=== PATIENT | male | born 1960 | race African-American/Black ===

== ENCOUNTER 2019-01-02 04:57 | Observation (INO) | payer BC ==
[~2019-01-02] VITALS: Ht 162.6 cm; Wt 72.6 kg
[2019-01-02] VITALS (11 sets, daily range): BP systolic 128–175; BP diastolic 81–115
--- NOTE | 2019-01-02 05:10 | NUR ---
ED Nurse Note: PT AMBULATED TO ED C/O DIZZINESS AND BLURRED VISION X 1700 YESTERDAY
--- NOTE | 2019-01-02 05:15 | NUR ---
ED Nurse Note: IV ACCESS ESTABLISHED. BLOOD AND URINE COLLECTED; SENT DOWN TO LAB.
--- NOTE | 2019-01-02 06:01 | Emergency Room Report ---
History of Present Illness General Chief Complaint: Dizziness Source: Patient Present Illness HPI Patient presents with 2 episodes of near syncope. He got up quickly while watching [employer] game yesterday and almost passed out. Also when he got up this morning the same thing happened. He denies any chest pain or palpitations. His vision got blurry. He takes some medicine for his blood pressure as prescribed for him he does not know what it is or dosing. No unilateral weakness or numbness. History of peptic ulcer disease when young. No evidence of vomiting, coffee grounds or melena. Risk factors for cardiac disease: Hypertension, hyperlipidemia No fevers, chills, chest pain, palpitations, nausea, vomiting, diarrhea, dysuria , abdominal pain, shortness of breath, depression, headache. Allergies: Coded Allergies: No Known Allergies (Unverified , 01/02/19) Patient History Past Medical History: see triage record Social History: Denies: smoking Social History Narrative Reviewed Nursing Documentation: PMH: Agreed; PSxH: Agreed Nursing Documentation-PMH Past Medical History: No History, Except For Hx Hypertension: Yes Review of Systems All Other Systems: negative except mentioned in HPI Physical Exam Vital Signs Date Time Temp Pulse Resp B/P (MAP) Pulse Ox O2 Delivery O2 Flow Rate FiO2 01/02/19 05:00 97.7 53 16 172/104 (126) 94 Room Air Sp02 EP Interpretation: reviewed, normal General Appearance: well appearing, no apparent distress, GCS 15 Head: normocephalic, atraumatic Eyes: bilateral eye normal inspection, bilateral eye PERRL, bilateral eye EOMI ENT: moist mucus membranes Neck: supple Respiratory: lungs clear, normal breath sounds Cardiovascular #1: regular rate, rhythm Cardiovascular #2: 2+ radial (R) Gastrointestinal: normal inspection, normal bowel sounds, non tender, no mass, non-distended Musculoskeletal: back normal, gait/station normal, normal range of motion Neurologic: alert, oriented x3, research and insights executive III-XII nml as tested, motor strength/tone normal, DTRs symmetric, sensory intact, cerebellar normal, normal gait, speech normal Psychiatric: mood/affect normal Skin: no rash, other - Some pallor Medical Decision Making Diagnostic Impression: Primary Impression: Near syncope Additional Impression: Hypertension Qualified Codes: I10 - Essential (primary) hypertension ER Course The patient presents with near syncope that occurred twice in the last 24 hours. Differential includes acute myocardial infarction, volume depletion, excess medication, arrhythmia amongst others. Consider orthostatic cause. Evaluation with EKG, chest x-ray and labs. Patient is treated with mild IV hydration. Not orthostatic. EKG without injury, rate 54. CXR unremarkable. Labs normal. Due to near syncope, patient admitted telemetry. Repeat troponin determinations , consider cardiology consultation and echocardiogram. Laboratory Tests Test 01/02/19 05:15 White Blood Count 4.8 K/UL (4.8-10.8) Red Blood Count 5.04 M/UL (4.70-6.10) Hemoglobin 15.0 G/DL (14.2-18.0) Hematocrit 45.4 % (42.0-52.0) Mean Corpuscular Volume 90 FL (80-99) Mean Corpuscular Hemoglobin 29.7 PG (27.0-31.0) Mean Corpuscular Hemoglobin Concent 33.0 G/DL (32.0-36.0) Red Cell Distribution Width 13.3 % (11.6-14.8) Platelet Count 172 K/UL (150-450) Mean Platelet Volume 7.8 FL (6.5-10.1) Neutrophils (%) (Auto) % (45.0-75.0) Lymphocytes (%) (Auto) % (20.0-45.0) Monocytes (%) (Auto) % (1.0-10.0) Eosinophils (%) (Auto) % (0.0-3.0) Basophils (%) (Auto) % (0.0-2.0) Prothrombin Time 9.9 SEC (9.30-11.50) Prothrombin Time INR 0.9 (0.9-1.1) PTT 23 SEC (23-33) Urine Color Pale yellow Urine Appearance Clear Urine pH 5 (4.5-8.0) Urine Specific [place] 1.025 (1.005-1.035) Urine Protein Negative (NEGATIVE) Urine Glucose (UA) Negative (NEGATIVE) Urine Ketones Negative (NEGATIVE) Urine Blood 2+ (NEGATIVE) H Urine Nitrite Negative (NEGATIVE) Urine Bilirubin Negative (NEGATIVE) Urine Urobilinogen Normal MG/DL (0.0-1.0) Urine Leukocyte Esterase Negative (NEGATIVE) Urine RBC 2-4 /HPF (0 - 0) H Urine WBC 0 /HPF (0 - 0) Urine Squamous Epithelial Cells None /LPF (NONE/OCC) Urine Bacteria None /HPF (NONE) Sodium Level 139 MMOL/L (136-145) Potassium Level 3.4 MMOL/L (3.5-5.1) L Chloride Level 104 MMOL/L (98-107) Carbon Dioxide Level 26 MMOL/L (21-32) Anion Gap 9 mmol/L (5-15) Blood Urea Nitrogen 19 mg/dL (7-18) H Creatinine 1.0 MG/DL (0.55-1.30) Estimate Glomerular Filtration Rate > 60 mL/min (>60) Glucose Level 158 MG/DL (74-106) H Calcium Level 8.7 MG/DL (8.5-10.1) Total Bilirubin 0.3 MG/DL (0.2-1.0) Aspartate Amino Transferase (AST) 22 U/L (15-37) Alanine Aminotransferase (ALT) 28 U/L (12-78) Alkaline Phosphatase 84 U/L (46-116) Total Creatine Kinase 171 U/L (26-308) Troponin I 0.005 ng/mL (0.000-0.056) Pro-B-Type Natriuretic Peptide 37 pg/mL (0-125) Total Protein 7.1 G/DL (6.4-8.2) Albumin 3.7 G/DL (3.4-5.0) Globulin 3.4 g/dL Albumin/Globulin Ratio 1.1 (1.0-2.7) Urine Opiates Screen Negative (NEGATIVE) Urine Barbiturates Screen Negative (NEGATIVE) Phencyclidine (PCP) Screen Negative (NEGATIVE) Urine Amphetamines Screen Negative (NEGATIVE) Urine Benzodiazepines Screen Negative (NEGATIVE) Urine Cocaine Screen Negative (NEGATIVE) Urine Marijuana (THC) Screen Negative (NEGATIVE) EKG Diagnostic Results Rate: bradycardiac Rhythm: NSR ST Segments: no acute changes Rhythm Strip Diag. Results EP Interpretation: yes Rhythm: NSR, no PVC's, no ectopy Chest X-Ray Diagnostic Results Chest X-Ray Diagnostic Results : Chest X-Ray Ordered: Yes # of Views/Limited/Complete: 1 View Indication: Other EP Interpretation: Yes Interpretation: no consolidation, no effusion, no pneumothorax Impression: No acute disease Electronically Signed by: Electronically signed by Kimani Romero MD Last Vital Signs Date Time Temp Pulse Resp B/P (MAP) Pulse Ox O2 Delivery O2 Flow Rate FiO2 01/02/19 05:54 97.7 51 16 137/81 94 Room Air Disposition: PLACE IN OBSERVATION Condition: Serious Kimani Romero MD Jan 02, 2019 06:01
[2019-01-02 06:12] LABS: HEMATOCRIT 45.4 % (42.0-52.0); MEAN CORPUSCULAR VOLUME 90 FL (80-99); PLATELET COUNT 172 K/UL (150-450); RED BLOOD COUNT 5.04 M/UL (4.70-6.10); RED CELL DISTRIBUTION WIDTH 13.3 % (11.6-14.8); WHITE BLOOD COUNT 4.8 K/UL (4.8-10.8)
[2019-01-02 06:20] LABS: INR 0.9 (0.9-1.1)
[2019-01-02 06:25] LABS: ANION GAP 9 mmol/L (5-15); BLOOD UREA NITROGEN 19 mg/dL (7-18); CALCIUM 8.7 MG/DL (8.5-10.1); CARBON DIOXIDE 26 MMOL/L (21-32); CHLORIDE 104 MMOL/L (98-107); POTASSIUM 3.4 MMOL/L (3.5-5.1); SODIUM 139 MMOL/L (136-145)
[2019-01-02 06:32] LABS: APPEARANCE,URINE CLEAR; BILIRUBIN, URINE NEGATIVE (NEGATIVE); COLOR,URINE PALE YELLOW; GLUCOSE, URINE (UA) NEGATIVE (NEGATIVE); KETONES,URINE NEGATIVE (NEGATIVE); LEUKOCYTE ESTERASE ,URINE NEGATIVE (NEGATIVE); NITRITE,URINE NEGATIVE (NEGATIVE); PH,URINE 5 (4.5-8.0); PROTEIN,URINE NEGATIVE (NEGATIVE); UROBILINOGEN,URINE NORMAL MG/DL (0.0-1.0)
[2019-01-02 06:38] LABS: ALANINE AMINOTRANSFERASE 28 U/L (12-78); ALBUMIN 3.7 G/DL (3.4-5.0); ALBUMIN/GLOBULIN RATIO 1.1 (1.0-2.7); ALKALINE PHOSPHATASE 84 U/L (46-116); ASPARTATE AMINO TRANSFERASE 22 U/L (15-37); BILIRUBIN,TOTAL 0.3 MG/DL (0.2-1.0); CREATINE KINASE 171 U/L (26-308)
--- NOTE | 2019-01-02 07:04 | NUR ---
HAND-OFF: Report given to tuan paz. patient in stable condition. endorsed pending observation.
--- NOTE | 2019-01-02 07:09 | NUR ---
ED Nurse Note: pt went back from ct with tech
--- NOTE | 2019-01-02 07:18 | NUR ---
ED Nurse Note: pt is aware that he is going to stay in the hospital for observation. pt denies pain. bp 152/92. will continue to monitor.
--- NOTE | 2019-01-02 07:23 | NUR ---
ED Nurse Note: alternative energy technician on bedside.
--- NOTE | 2019-01-02 09:30 | NUR ---
ED Nurse Note: pt aware of the transfer, aware. pt has no complaint at the moment. will continue to monitor.
--- NOTE | 2019-01-02 09:35 | NUR ---
ED Nurse Note: [phone] germain [place] pt left her phone number on file
--- NOTE | 2019-01-02 11:35 | NUR ---
ED Nurse Note: pt was admitted to the hospital. report given to Cynthia AGUILERA
--- NOTE | 2019-01-02 11:40 | NUR ---
ED Nurse Note: pt was tranfered to the room, all belongings endorsed to daphney dickerson.
--- NOTE | 2019-01-02 11:51 | Diagnostic Imaging Report ---
Indication: Syncope Technique: Contiguous 5 mm thick transaxial imaging of the head obtained in a Siemens Sensation [address] scanner. Soft tissue and bone windows generated. Automatic Exposure Control was utilized. Total Dose length Product (DLP): 1411.[address] Dose Index Volume (CTDIvol): 70.38 mGy Comparison: none Findings: The size and configuration of the cortical sulci, basal cisterns, and ventricles are within normal limits for age. There is no mass effect, midline shift, or edema identified. There is no evidence of acute hemorrhage or abnormal intra-axial or extra-axial fluid collections. The bones and soft tissues are unremarkable. Impression: No mass effect, edema or acute bleed. [facility] has communicated the preliminary results to the Emergency Department. Their findings are largely concordant with this report. The CT scanner at [facility] is accredited by the [employer] and the scans are performed using dose optimization techniques as appropriate to a performed exam including Automatic Exposure control.
--- NOTE | 2019-01-02 12:45 | History and Physical Report ---
DATE OF ADMISSION: 01/02/2019 REASON FOR ADMISSION: 1. Lightheadedness. 2. Presyncopal episode. HISTORY OF PRESENT ILLNESS: The patient is a 58-year-old gentleman being admitted for further and evaluation of care of 2 episodes of near syncope. It seems that both occasions had occurred when he went from a sitting or lying position up to standing. First time, occurrence was while watching TV, the patient stood up, and got lightheaded and dizzy, and such he sat down and felt better. Later that night, he woke up at 2 in the morning to retrieve some water, while standing up to go to the kitchen also the patient felt lightheaded and dizzy and then came back to the bedroom. The patient's only medication is lisinopril. Family at bedside states he takes it off and on. He denies any blackout, passing out, just 2 episodes of feeling lightheaded and dizzy. Heart rate at bedside currently 50 to 52. Denies any cardiac history. ALLERGIES: None. PAST MEDICAL HISTORY: Hypertension. SOCIAL HISTORY: No tobacco, alcohol, illicit drug use. FAMILY HISTORY: Hypertension. PAST SURGICAL HISTORY: Noncontributory. REVIEW OF SYSTEMS: NEUROLOGIC: The patient was lightheaded and dizzy. No syncopal episodes. CARDIOVASCULAR: No current chest pain, palpitations, or angina. PULMONARY: No difficulty breathing, productive cough, or sputum. GASTROINTESTINAL/GENITOURINARY: No change in bowel habits. No nausea, vomiting, or diarrhea. ENDOCRINOLOGY: No night sweats, fever, or chills. MUSCULOSKELETAL: The patient feels fatigued. LABORATORY DATA: Labs dated 01/02/2019, white cell count 4.8, hemoglobin 15, platelet count 172. Potassium 3.4, sodium 139, creatinine 1. Troponin 0.005. Toxicology screen negative. PHYSICAL EXAMINATION: VITAL SIGNS: Blood pressure 128/88, respiratory rate 19, pulse 53, temperature 98, 100% oxygen saturation on room air. GENERAL: The patient is awake and alert, not otherwise in distress. HEENT: Extraocular muscles intact. No lymphadenopathy noted. CARDIOVASCULAR: S1, S2. No rubs or gallops. PULMONARY: Clear to auscultation bilaterally. No rales, rhonchi, or wheezes. ABDOMEN: Nondistended and nontender. EXTREMITIES: No edema. ASSESSMENT AND PLAN: 1. Near syncopal episode with lightheadedness and dizziness from a sitting or lying position to standing. Could be secondary to orthostatic hypotension. We will initiate IV fluids. At this time, we will also consult Cardiology. Restart lisinopril and place the patient on 24-hour telemetry monitoring. 2. Hypertension. We will continue lisinopril 40 mg daily and monitor blood pressure. 3. DVT prophylaxis with Lovenox. 4. GI prophylaxis with famotidine. Abhijit Levi MD DR: MARK JOB#: [id number] CC:
--- NOTE | 2019-01-02 12:58 | Diagnostic Imaging Report ---
Indication: Dyspnea Comparison: None A single view chest radiograph was obtained. Findings: No definite infiltrate or pulmonary vascular congestion identified. The heart is enlarged. The aorta is mildly enlarged consistent with atherosclerotic vascular disease. The bones are osteopenic. Impression: No acute disease
--- NOTE | 2019-01-02 13:00 | NUR ---
NURSE NOTES: I received the patient from the ER. Patient alert and oriented x4. Patient oriented to the room and the use of the call light. Bed in the lowest position and call light within reach. Patient's IV intact. Patient does not display any signs of distress or SOB. I will continue to monitor the patient and await for orders from the doctor.
--- NOTE | 2019-01-02 13:51 | Cardiology Progress Note ---
Assessment/Plan Assessment/Plan [id number] sx as described by pt c/w vertigo rather than a cardiac issue bp on arrival was sig elelvated unlikey to be volume related will have echo for eval of vavlualr heart disease keep on tele cannot loacte ekg will reorder will follow many thanks !! Objective Last 24 Hour Vital Signs Date Time Temp Pulse Resp B/P (MAP) Pulse Ox O2 Delivery O2 Flow Rate FiO2 01/02/19 13:30 157/105 (122) 68 01/02/19 11:29 53 19 128/88 100 Room Air 01/02/19 10:50 90 16 140/91 100 01/02/19 09:45 52 20 148/89 99 Room Air 01/02/19 08:34 98.0 54 13 135/91 100 Room Air 01/02/19 07:18 52 12 152/92 100 Room Air 01/02/19 06:26 97.7 57 15 152/96 100 Room Air 53 165/100 60 175/104 01/02/19 06:10 51 16 Room Air 01/02/19 05:54 97.7 51 16 137/81 94 Room Air 01/02/19 05:00 97.7 53 16 172/104 (126) 94 Room Air Laboratory Tests Test 01/02/19 05:15 White Blood Count 4.8 K/UL (4.8-10.8) Red Blood Count 5.04 M/UL (4.70-6.10) Hemoglobin 15.0 G/DL (14.2-18.0) Hematocrit 45.4 % (42.0-52.0) Mean Corpuscular Volume 90 FL (80-99) Mean Corpuscular Hemoglobin 29.7 PG (27.0-31.0) Mean Corpuscular Hemoglobin Concent 33.0 G/DL (32.0-36.0) Red Cell Distribution Width 13.3 % (11.6-14.8) Platelet Count 172 K/UL (150-450) Mean Platelet Volume 7.8 FL (6.5-10.1) Neutrophils (%) (Auto) % (45.0-75.0) Lymphocytes (%) (Auto) % (20.0-45.0) Monocytes (%) (Auto) % (1.0-10.0) Eosinophils (%) (Auto) % (0.0-3.0) Basophils (%) (Auto) % (0.0-2.0) Prothrombin Time 9.9 SEC (9.30-11.50) Prothromb Time International Ratio 0.9 (0.9-1.1) Activated Partial Thromboplast Time 23 SEC (23-33) Urine Color Pale yellow Urine Appearance Clear Urine pH 5 (4.5-8.0) Urine Specific [place] 1.025 (1.005-1.035) Urine Protein Negative (NEGATIVE) Urine Glucose (UA) Negative (NEGATIVE) Urine Ketones Negative (NEGATIVE) Urine Blood 2+ (NEGATIVE) H Urine Nitrite Negative (NEGATIVE) Urine Bilirubin Negative (NEGATIVE) Urine Urobilinogen Normal MG/DL (0.0-1.0) Urine Leukocyte Esterase Negative (NEGATIVE) Urine RBC 2-4 /HPF (0 - 0) H Urine WBC 0 /HPF (0 - 0) Urine Squamous Epithelial Cells None /LPF (NONE/OCC) Urine Bacteria None /HPF (NONE) Sodium Level 139 MMOL/L (136-145) Potassium Level 3.4 MMOL/L (3.5-5.1) L Chloride Level 104 MMOL/L (98-107) Carbon Dioxide Level 26 MMOL/L (21-32) Anion Gap 9 mmol/L (5-15) Blood Urea Nitrogen 19 mg/dL (7-18) H Creatinine 1.0 MG/DL (0.55-1.30) Estimat Glomerular Filtration Rate > 60 mL/min (>60) Glucose Level 158 MG/DL (74-106) H Calcium Level 8.7 MG/DL (8.5-10.1) Total Bilirubin 0.3 MG/DL (0.2-1.0) Aspartate Amino Transf (AST/SGOT) 22 U/L (15-37) Alanine Aminotransferase (ALT/SGPT) 28 U/L (12-78) Alkaline Phosphatase 84 U/L (46-116) Total Creatine Kinase 171 U/L (26-308) Troponin I 0.005 ng/mL (0.000-0.056) Pro-B-Type Natriuretic Peptide 37 pg/mL (0-125) Total Protein 7.1 G/DL (6.4-8.2) Albumin 3.7 G/DL (3.4-5.0) Globulin 3.4 g/dL Albumin/Globulin Ratio 1.1 (1.0-2.7) Urine Opiates Screen Negative (NEGATIVE) Urine Barbiturates Screen Negative (NEGATIVE) Phencyclidine (PCP) Screen Negative (NEGATIVE) Urine Amphetamines Screen Negative (NEGATIVE) Urine Benzodiazepines Screen Negative (NEGATIVE) Urine Cocaine Screen Negative (NEGATIVE) Urine Marijuana (THC) Screen Negative (NEGATIVE) Tye Wadsworth MD Jan 02, 2019 13:51
[2019-01-02] MEDS: Enoxaparin 40mg Inj SUBQ SCH (14:59)
--- NOTE | 2019-01-02 16:00 | Consultation ---
DATE OF CONSULTATION: 01/02/2019 CARDIOLOGY CONSULTATION CONSULTING PHYSICIAN: Tye Wadsworth M.D. REFERRING PHYSICIAN: 1. Abhijit Levi M.D. 2. Dr. Conway. REASON FOR REFERRAL: Dizziness. HISTORY OF PRESENT ILLNESS: This is a 58-year-old gentleman with history of hypertension, who is under the care of primary care physician. The patient presented to the hospital because of an episode of dizziness that occurred when he got up from sitting position to standing position last night while watching basketball game and he sat back down. His symptoms resolved. He describes it as sensation of spinning in his head and the fact that he felt like he was going off balance and felt somewhat nauseated. That symptom resolved and this morning when he got out of bed, it occurred again. This occurred in the setting of again getting out of bed and this occurred. He has never had this sensation before. There is no blurred vision, double vision, numbness, weakness, or paralysis in his arms or legs. He denies any chest pain or pressure. There is no PND. No orthopnea. No palpitation. He usually does not have any dizziness or lightheadedness on standing. PAST MEDICAL HISTORY: Positive for high blood pressure, high cholesterol, history of bleeding peptic ulcer for which he underwent surgery. Denies all the other medical problems. No other surgery besides above. SOCIAL HISTORY: Never smoked, drank, or used drugs. 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 REVIEW OF SYSTEMS: GASTROINTESTINAL: Bout of nausea, but no vomiting yesterday. No bloody or black stool. GENITOURINARY: Negative. PULMONARY: Negative. CONSTITUTIONAL: Negative. NEUROLOGICAL: As mentioned in HPI, is negative. PHYSICAL EXAMINATION: GENERAL: Shows to be middle-aged gentleman, in no respiratory distress. NECK: Supple. No jugular venous distention. LUNGS: Clear to auscultation and percussion. CARDIAC: S1 is normal. S2 is normal. Regular rate. Systolic ejection murmur. There is no heaves, thrills, gallops, or rubs are noted. ABDOMEN: Soft, nontender. Positive bowel sounds. EXTREMITIES: There is no clubbing or cyanosis nor is there any edema. NEUROLOGICAL: He is awake, alert, responsive, in no apparent respiratory distress. LABORATORY VALUES: Telemetry shows sinus rhythm. CT scan of the head has been performed and shows no acute intracranial abnormalities. There has been an electrocardiogram performed, unfortunately it is not available for review at this time. The remainder of his blood tests show white count of 4.8, hemoglobin 15, and platelet count of 172,000. Sodium is 139, potassium 3.4, chloride 104, bicarb 26, BUN 19, creatinine 1.0, and glucose of 158. Troponin less than 0.05, proBNP of only 37. INR 0.9 and PTT of 37. Tox-screen was negative and urinalysis was 2 to 4 rbc's, otherwise unremarkable. He did have a chest x-ray as well that showed no definite infiltrates. Again, EKG apparently was performed. I am not able to locate it in the patient's chart. ASSESSMENT AND PLAN: 1. Dizziness, most suggestive of vertigo, probably labyrinthine. 2. Hypertension. 3. History of hyperlipidemia. 4. History of peptic ulcer disease with history of bleeding that was resected in teenage years. 5. Systolic ejection murmur. This patient was seen in cardiac consultation. The symptoms as described are more consistent with vertigo than lightheadedness. EKG has not been located. I will reorder the test. Because of his murmur, I will evaluate to exclude any significant aortic stenosis, which I doubt and a set of orthostatic vitals will be ordered although his initial blood pressure of 172/104 on arrival in the emergency room would make it unlikely that he is actually volume depleted as a cause of his symptoms. Again, his symptoms are more consistent with vertigo than cardiac or blood pressure causes. This patient will be followed. Tye Wadsworth M.D. DR: Radha JOB#: [id number] CC:
--- NOTE | 2019-01-02 19:01 | NUR ---
HAND-OFF: Report given to Herson Rea RN.
--- NOTE | 2019-01-02 19:20 | NUR ---
NURSE NOTES: Pt received from WILLY Marie alert and oriented x4 with no acute s/s of distress noted. Currently resting in bed, calm and comfortable. IV site asymptomatic and patent on R fa 22g, saline lock. Bed in lowest position, call light and belongings within reach. quality assurance monitor final on - Sinus Bradycardia (54).
[2019-01-03] VITALS: BP 144/89
[2019-01-03 04:00] VITALS: BP 135/80
--- NOTE | 2019-01-03 07:04 | NUR ---
HAND-OFF: Report given to [WILLY Zelaya].
--- NOTE | 2019-01-03 07:23 | NUR ---
NURSE NOTES: Received report from WILLY Felipe. Patient is resting in bed, in stable condition. No s/sx of SOB, breathing is even and unlabored, room air. Denies any presence of pain or discomfort at this time. Bed is in lowest position, brakes engaged. Call light is kept within easy reach. Will continue to monitor patient.
[2019-01-03 07:37] LABS: BASOPHILS % (AUTO) 0.6 % (0.0-2.0); EOSINOPHILS % (AUTO) 1.7 % (0.0-3.0); HEMATOCRIT 42.8 % (42.0-52.0); HEMOGLOBIN 14.4 G/DL (14.2-18.0); LYMPHOCYTES % (AUTO) 47.3 % (20.0-45.0); MEAN CORPUSCULAR VOLUME 90 FL (80-99); MONOCYTES % (AUTO) 6.6 % (1.0-10.0); NEUTROPHILS % (AUTO) 43.8 % (45.0-75.0); PLATELET COUNT 162 K/UL (150-450); RED BLOOD COUNT 4.75 M/UL (4.70-6.10); RED CELL DISTRIBUTION WIDTH 12.5 % (11.6-14.8); WHITE BLOOD COUNT 5.7 K/UL (4.8-10.8)
[2019-01-03 07:38] VITALS: BP 164/100
--- NOTE | 2019-01-03 08:13 | Nephrology Progress Note ---
Assessment/Plan Assessment/Plan: A/P 1) Dizzyness/Presyncope - appreciate cardiology assistance - will order carotid US. ?? Vertigo etiology, can be f/u with PCP as out patient , can use meclizine - DC once cleared by cardiology and if carotid US neg 2) Bradycardia- HR 44.Defer to cardiology for further reccs 3) HTN- not at goal. Increase lisinopril to 40mg bid DC today if carotid US neg and cleared by cardiology for bradycardia Subjective Date patient seen: Jan 03, 2019 Time patient seen: 08:08 ROS Limited/Unobtainable: No Allergies: Coded Allergies: No Known Allergies (Unverified , 01/02/19) Subjective Patient feeling well. No complaints Objective Last 24 Hour Vital Signs Date Time Temp Pulse Resp B/P (MAP) Pulse Ox O2 Delivery O2 Flow Rate FiO2 01/03/19 07:38 97.0 104 19 164/100 (121) 97 01/03/19 04:00 54 01/03/19 04:00 98.0 56 19 135/80 (98) 98 01/03/19 00:00 98.3 58 19 144/89 (107) 99 01/02/19 21:00 55 57 57 01/02/19 21:00 98.3 55 131/90 (104) 100 156/95 (115) 174/115 (134) 01/02/19 21:00 Room Air 01/02/19 20:00 98.2 61 18 139/88 (105) 97 01/02/19 20:00 61 01/02/19 16:00 54 01/02/19 16:00 98.4 18 138/89 (105) 57 01/02/19 15:28 98.0 01/02/19 15:09 59 64 75 01/02/19 13:30 157/105 (122) 68 01/02/19 12:14 Room Air 01/02/19 11:40 98.0 53 19 128/88 100 Room Air 01/02/19 11:29 53 19 128/88 100 Room Air 01/02/19 10:50 90 16 140/91 100 01/02/19 09:45 52 20 148/89 99 Room Air 01/02/19 08:34 98.0 54 13 135/91 100 Room Air Intake and Output 01/02/19 01/03/19 19:00 07:00 Intake Total 1025 ml 600 ml Output Total 1700 ml Balance 1025 ml -1100 ml IV Total 225 ml 600 ml Other 800 ml Output Urine Total 1700 ml Laboratory Tests 01/02/19 20:40: Troponin I 0.004 01/03/19 06:19: Troponin I [Pending], White Blood Count 5.7, Red Blood Count 4.75, Hemoglobin 14.4, Hematocrit 42.8, Mean Corpuscular Volume 90, Mean Corpuscular Hemoglobin 30.3, Mean Corpuscular Hemoglobin Concent 33.6, Red Cell Distribution Width 12.5 , Platelet Count 162, Mean Platelet Volume 7.3, Neutrophils (%) (Auto) 43.8L, Lymphocytes (%) (Auto) 47.3H, Monocytes (%) (Auto) 6.6, Eosinophils (%) (Auto) 1.7, Basophils (%) (Auto) 0.6, Sodium Level [Pending], Potassium Level [Pending] , Chloride Level [Pending], Carbon Dioxide Level [Pending], Blood Urea Nitrogen [Pending], Creatinine [Pending], Estimat Glomerular Filtration Rate [Pending], Glucose Level [Pending], Calcium Level [Pending], Pro-B-Type Natriuretic Peptide [Pending] Height (Feet): 5 Height (Inches): 4.00 Weight (Pounds): 160 General Appearance: no apparent distress, alert EENT: normal ENT inspection Neck: normal alignment, supple Cardiovascular: normal rate, regular rhythm Respiratory/Chest: lungs clear, normal breath sounds Abdomen: non tender, soft Edema: no edema noted Arm (L), no edema noted Arm (R), no edema noted Leg (L), no edema noted Leg (R), no edema noted Pedal (L), no edema noted Pedal (R), no edema noted Generalized Abhijit Levi MD Jan 03, 2019 08:13
[2019-01-03 08:35] LABS: ANION GAP 10 mmol/L (5-15); BLOOD UREA NITROGEN 13 mg/dL (7-18); CALCIUM 8.8 MG/DL (8.5-10.1); CARBON DIOXIDE 26 MMOL/L (21-32); CHLORIDE 106 MMOL/L (98-107); POTASSIUM 4.3 MMOL/L (3.5-5.1); SODIUM 142 MMOL/L (136-145)
[2019-01-03] MEDS ORDERED: Lisinopril 20mg tab ORAL SCH ×2 (09:00)
[2019-01-03] MEDS ORDERED: Aspirin Baby 81mg ORAL SCH (09:00)
--- NOTE | 2019-01-03 10:50 | NUR ---
NURSE NOTES: Patient complained of dry eyes bilaterally. Notified Dr. Gurmeet MD acknowledged and ordered Visine eye drops BID PRN for dry eyes. Order entered, noted, and carried out. Will continue to monitor patient.
[2019-01-03] MEDS ORDERED: Tetrahydrozoline 0.05% Opth 15ml BOTH EYES PRN (11:00)
--- NOTE | 2019-01-03 11:17 | Cardiology Progress Note ---
Assessment/Plan Assessment/Plan 1. Dizziness, most suggestive of vertigo, probably labyrinthine. 2. Hypertension. 3. History of hyperlipidemia. 4. History of peptic ulcer disease with history of bleeding that was resected in teenage years. 5. Systolic ejection murmur 6. Sinus janelle no sx this am janelle sinus nto need any therapy at this time i have recommneded adn pt has agreed to fu as outpt arterial duplex beign performed so far per tech neg ok to dc from cv point of view bp poolry controlled med adjsuted Subjective Cardiovascular: Denies: chest pain, lightheadedness, palpitations Respiratory: Denies: shortness of breath Gastrointestinal/Abdominal: Denies: abdominal pain Genitourinary: Denies: burning Objective Last 24 Hour Vital Signs Date Time Temp Pulse Resp B/P (MAP) Pulse Ox O2 Delivery O2 Flow Rate FiO2 01/03/19 09:00 59 65 67 01/03/19 09:00 Room Air 01/03/19 08:08 164/100 01/03/19 08:00 64 01/03/19 07:38 97.0 104 19 164/100 (121) 97 01/03/19 04:00 54 01/03/19 04:00 98.0 56 19 135/80 (98) 98 01/03/19 00:00 98.3 58 19 144/89 (107) 99 01/02/19 21:00 55 57 57 01/02/19 21:00 98.3 55 131/90 (104) 100 156/95 (115) 174/115 (134) 01/02/19 21:00 Room Air 01/02/19 20:00 98.2 61 18 139/88 (105) 97 01/02/19 20:00 61 01/02/19 16:00 54 01/02/19 16:00 98.4 18 138/89 (105) 57 01/02/19 15:28 98.0 01/02/19 15:09 59 64 75 01/02/19 13:30 157/105 (122) 68 01/02/19 12:14 Room Air 01/02/19 11:40 98.0 53 19 128/88 100 Room Air 01/02/19 11:29 53 19 128/88 100 Room Air General Appearance: no apparent distress, alert Neck: supple Cardiovascular: normal rate, regular rhythm Respiratory/Chest: lungs clear Abdomen: normal bowel sounds, non tender, soft Extremities: no swelling Intake and Output 01/02/19 01/03/19 18:59 06:59 Intake Total 1025 ml 600 ml Output Total 1700 ml Balance 1025 ml -1100 ml IV Total 225 ml 600 ml Other 800 ml Output Urine Total 1700 ml Laboratory Tests Test 01/02/19 20:40 01/03/19 06:19 Troponin I 0.004 ng/mL (0.000-0.056) 0.018 ng/mL (0.000-0.056) White Blood Count 5.7 K/UL (4.8-10.8) Red Blood Count 4.75 M/UL (4.70-6.10) Hemoglobin 14.4 G/DL (14.2-18.0) Hematocrit 42.8 % (42.0-52.0) Mean Corpuscular Volume 90 FL (80-99) Mean Corpuscular Hemoglobin 30.3 PG (27.0-31.0) Mean Corpuscular Hemoglobin Concent 33.6 G/DL (32.0-36.0) Red Cell Distribution Width 12.5 % (11.6-14.8) Platelet Count 162 K/UL (150-450) Mean Platelet Volume 7.3 FL (6.5-10.1) Neutrophils (%) (Auto) 43.8 % (45.0-75.0) L Lymphocytes (%) (Auto) 47.3 % (20.0-45.0) H Monocytes (%) (Auto) 6.6 % (1.0-10.0) Eosinophils (%) (Auto) 1.7 % (0.0-3.0) Basophils (%) (Auto) 0.6 % (0.0-2.0) Sodium Level 142 MMOL/L (136-145) Potassium Level 4.3 MMOL/L (3.5-5.1) Chloride Level 106 MMOL/L (98-107) Carbon Dioxide Level 26 MMOL/L (21-32) Anion Gap 10 mmol/L (5-15) Blood Urea Nitrogen 13 mg/dL (7-18) Creatinine 1.0 MG/DL (0.55-1.30) Estimat Glomerular Filtration Rate > 60 mL/min (>60) Glucose Level 111 MG/DL (74-106) H Calcium Level 8.8 MG/DL (8.5-10.1) Pro-B-Type Natriuretic Peptide 79 pg/mL (0-125) Tye Wadsworth MD Jan 03, 2019 11:17
[2019-01-03] MEDS: Enoxaparin 40mg Inj SUBQ SCH (11:58)
[2019-01-03 12:00] VITALS: BP 143/93
--- NOTE | 2019-01-03 12:03 | Diagnostic Imaging Report ---
EXAM: US Duplex Bilateral Extracranial Arteries CLINICAL HISTORY: DIZZY TECHNIQUE: Real-time duplex ultrasound scan of the extracranial arteries integrating B-mode two-dimensional vascular structure, Doppler spectral analysis and color flow Doppler imaging. COMPARISON: No relevant prior studies available. FINDINGS: Right common carotid artery: Unremarkable. No occlusion or significant stenosis on color flow and spectral Doppler imaging. Peak systolic velocity of the distal CCA of 66.5 cm/s. Right internal carotid artery: Unremarkable. No occlusion or significant stenosis on color flow and spectral Doppler imaging. Peak systolic velocity of 42 cm/s. Right external carotid artery: Unremarkable. No occlusion or significant stenosis on color flow and spectral Doppler imaging. Right vertebral artery: Unremarkable. Antegrade flow. Right ICA/CCA ratio: 0.6. Within normal limits. Left common carotid artery: Unremarkable. No occlusion or significant stenosis on color flow and spectral Doppler imaging. Peak systolic velocity of the distal CCA of 52.1cm/s. Left internal carotid artery: Unremarkable. No occlusion or significant stenosis on color flow and spectral Doppler imaging. Peak systolic velocity of 47.3 cm/s. Left external carotid artery: Unremarkable. No occlusion or significant stenosis on color flow and spectral Doppler imaging. Left vertebral artery: Unremarkable. Antegrade flow. Left ICA/CCA ratio: 0.9. Within normal limits. Lymph nodes: Unremarkable. No lymphadenopathy. CAROTID STENOSIS REFERENCE USING SRU CRITERIA: Mild - <50% stenosis. ICA PSV is less than 125 cm/second, ICA/CCA PSV ratio <2.0, and plaque or intimal thickening is visible. Moderate - 50-69% stenosis. ICA PSV is 125 to 230 cm/second, or ICA/CCA PSV ratios 2.0-4.0, and plaque is visible. Severe - 70-94% stenosis. ICA PSV is more than 230 cm/second, ICA/CCA PSV ratios >4.0, and visible plaque with lumen narrowing is seen. Near occlusion - 95-99% stenosis. ICA PSV is variable and significant plaque with luminal narrowing is seen. Occluded - 100% stenosis. No flow identified. IMPRESSION: Unremarkable duplex ultrasound of the neck. No evidence of hemodynamically significant ICA stenosis. No atherosclerotic calcifications.
[2019-01-03] MEDS ORDERED: LISINOPRIL20 MG ORAL (12:58)
--- NOTE | 2019-01-03 14:15 | NUR ---
NURSE NOTES: Patient discharged to home self-care per Dr. Levi. Given all discharge instructions, patient verbalized understanding. Informed patient that Dr. Levi has called in prescription to patient's pharmacy [facility], patient verbalized understanding. IV access discontinued, no active bleeding noted. heart monitor removed and returned to systems technician. ID band removed and placed in shredder. Patient left in private vehicle, with family, with all belongings in stable condition. Noted.
== END 2019-01-03 14:15 | disposition home or self-care (01) ==
LOC: EMR 06:15 → 2E 11:05 → EDBEDREQ 11:15 → 2E 17:07
DX: R42 Dizziness and giddiness (principal); R55 Syncope and collapse; Z79.899 Other long term (current) drug therapy; I10 Essential (primary) hypertension; E78.00 Pure hypercholesterolemia, unspecified; E78.5 Hyperlipidemia, unspecified; Z87.11 Personal history of peptic ulcer disease; R01.1 Cardiac murmur, unspecified; R00.1 Bradycardia, unspecified; M85.80 Other specified disorders of bone density and structure, unspecified site; I51.7 Cardiomegaly; I70.90 Unspecified atherosclerosis
CPT/HCPCS: 36415; 70450; 71045; 80048; 80053; 80307; 81003; 82550; 83880; 84484; 85025; 85610; 85730; 93005; 93306; 93880; 96360; 99285; G0378; J1650; J8499